=== PATIENT | female | born 1955 | race Caucasian/White ===

== ENCOUNTER 2020-06-07 20:25 | Inpatient (IN) | payer OTHER, SELFPAY ==
--- NOTE | ~2020-06-07 | XR_ITS ---
XR shoulder RT min 2V DATE: 06/11/2020 14:25 INDICATION: New onset of right shoulder pain TECHNIQUE: 4 views COMPARISON: None FINDINGS: There is diffuse osteopenia. There is severe narrowing at the right glenohumeral joint. There is chronic deformity including some inferior concavity of the articular margin of the right glenoid process. No apparent recent fracture. No dislocation. No abnormal soft tissue calcification. IMPRESSION: Chronic deformity of the glenoid process Osteoarthritis of the right glenohumeral joint Diffuse osteopenia Reviewed, dictated and finalized at location A. [facility]ERIN[facility]IAN
--- NOTE | ~2020-06-07 | CT_ITS ---
EXAMINATION: CT brain wo con EXAM DATE: 06/07/2020 21:38 INDICATION: Seizure . TECHNIQUE: Spiral CT of the head was performed without contrast. Axial, coronal and sagittal images were reviewed. The dose-length product (DLP) for this examination was 1362.00 mGy-cm. The exposure was tailored according to patient size, and iterative reconstruction (ASIR) was used as additional do se reduction technique. There is no prior study for comparison. FINDINGS: There is no acute intraparenchymal hemorrhage. No evidence of intraparenchymal brain mass lesion. No evidence of acute infarction. Please note that initial head CT has limited sensitivity f or small or acute infarctions. There is mild periventricular and subcortical hypodensity, nonspecific but probably related to small vessel ischemic disease. There is moderate prominence of the sulci a nd ventricles related to cerebral atrophy. There is intracranial carotid arteriosclerosis. There a re no extra-axial collections. There is no mass effect or midline shift. Patient has had bilateral ocular lens surgery. Soft tissue is unremarkable. The visualized sinuses and mastoid air cells are well aerated. IMPRESSION: 1. No acute intracranial findings. 2. Chronic age related findings. Reviewed, dictated and finalized at location A. T [employer] JOURNEYMAN
[2020-06-07 20:23] VITALS: BP 159/147; PULSE 136; RESP 28; TEMP 37.3; O2SAT 96
--- NOTE | 2020-06-07 20:33 | ECG_ITS ---
Measurements Intervals [place] Rate: 125 P: 14 RI: 145 QRS: 8 QRSD: 93 T: 34 QT: 336 QTc: 484 Interpretive Statements SINUS TACHYCARDIA VENTRICULAR PREMATURE COMPLEX NONSPECIFIC ST & T-WAVE ABNORMALITY- DIFFUSE LEADS ABNORMAL ECG Electronically Signed On 06-08-2020 11:10:10 MANAGER PRICING by Eliazar Martinez D.O.
--- NOTE | 2020-06-07 20:36 | ED.SEIZURE ---
HPI - Seizure General Chief Complaint: Seizure Stated Complaint: SEIZURES Time Seen by Provider: 06/07/20 20:33 History of Present Illness HPI Narrative: 65 yo female brought in by EMS for seizures. She reportedly had at least 2 seizures prior arrival here including one tonic-clonic seizure witnessed by EMS. She has no known seizure history. Last known normal was apparently 24 hours ago. She reports diffuse extremity weakness. No CP, SOB. On arrival here she was lucid for a brif period before having another seizure. history limited by mental status. Related Data Home Medications Medication Instructions Recorded Confirmed acetaminophen [Tylenol] 325 mg PO Q6-12H 06/07/20 06/07/20 albuterol mcg INHALATION 06/07/20 albuterol sulfate 0.63 mg INHALATION Q4H PRN 06/07/20 06/07/20 clonidine 06/07/20 clonidine HCl 0.3 mg PO DAILY 06/07/20 06/07/20 furosemide [Lasix] 20 mg PO DAILY 06/07/20 06/07/20 hydralazine-hydrochlorothiazid tablet PO 06/07/20 [Hydralazide] lactulose 20 g PO BID 06/07/20 06/07/20 lorazepam 1 mg PO TID PRN 06/07/20 06/07/20 montelukast [Singulair] 10 mg PO DAILY 06/07/20 06/07/20 pantoprazole 40 mg PO QAM 06/07/20 06/07/20 pioglitazone 30 mg PO DAILY 06/07/20 06/07/20 potassium chloride 20 meq PO BID 06/07/20 06/07/20 trazodone 100 mg PO HS PRN 06/07/20 06/07/20 warfarin 3 mg PO DAILY 06/07/20 06/07/20 Allergies Allergy/AdvReac Type Severity Reaction Status Date / Time amlodipine Allergy Rash Verified 06/07/20 20:37 atorvastatin [From Lipitor] Allergy Unknown Verified 06/07/20 20:41 diltiazem [From Cardizem] Allergy Rash Verified 06/07/20 20:41 doxycycline Allergy Rash Verified 06/07/20 20:41 fluoxetine Allergy Rash Verified 06/07/20 20:41 morphine Allergy Unknown Verified 06/07/20 20:41 nitroglycerin Allergy Unknown Verified 06/07/20 20:41 Penicillins Allergy Unknown Verified 06/07/20 20:41 promethazine Allergy Unknown Verified 06/07/20 20:41 propranolol [From Inderal LA] Allergy Unknown Verified 06/07/20 20:41 Sulfa (Sulfonamide Allergy Unknown Verified 06/07/20 20:41 Antibiotics) tetracycline Allergy Unknown Verified 06/07/20 20:41 Tetracyclines Allergy Unknown Verified 06/07/20 20:41 Review of Systems Review of Systems: ROS unobtainable: Yes unobtainable due to mental status [facility] Social History Social History (Updated 06/07/20 @ 20:40 by Cm Bradford MD) Living arrangements: [facility] Exam Const: General: alert and ill appearing Orientation/consciousness: confusion HENMT: Head: normal to inspection Eyes: Pupils: Equal, round and reactive pupils present Resp: Effort & Inspection: normal respiratory effort Auscultation: clear to auscultation bilaterally Cardio: Rate: tachycardic Rhythm: regular rhythm GI: GI Palp: Yes Soft to palpation and No Tenderness to palpation present (GI) Skin: General skin exam: normal color Neuro: General: CN's II-XI intact bilaterally Speech: normal speech Other: 3-4/5 strength in all extremities. exam limited by seizure Course Vital Signs Vital signs: Vital Signs Temperature 37.3 C 06/07/20 20:23 Pulse Rate 136 H 06/07/20 20:23 Respiratory Rate 28 H 06/07/20 20:23 Blood Pressure 159/147 H 06/07/20 20:23 Pulse Oximetry 96 06/07/20 20:23 Temperature 37.3 C 06/07/20 22:26 Pulse Rate 105 H 06/07/20 22:26 Respiratory Rate 28 H 06/07/20 22:26 Blood Pressure 148/92 H 06/07/20 22:26 Pulse Oximetry 96 06/07/20 22:26 MDM - Seizure Differential Diagnosis Differential diagnosis: Likely generalized seizure, new onset seizure and other (stroke, brain mass, UTI, ) Medical Records Attestation: I reviewed the patient's medical records. Lab Data Attestation: I reviewed the patient's lab results. Result diagrams: 06/07/20 21:26 06/07/20 22:07 Labs: Lab Results 06/07/20 06/07/20 06/07/20 Range/Units 21:24 21:26 21:26 WBC 15.4 H (4.5-10.0) K/mm3 RBC 4
[2020-06-07] MEDS: hydrALAZINE HCL 20 MG/ML VIAL IV PUSH (21:09)
[2020-06-07] MEDS: SODIUM CHLORIDE 0.9% IV 1,000 ML 999 ML IV CONT (21:09)
[2020-06-07 21:33] LABS: Basophils Absolute Auto 0.1 K/mm3 (0.0-0.1); Basophils Percent Auto 0.3 % (0.2-1.2); Eosinophils Percent Auto 0.1 % (0-4.4); Hematocrit 45.3 % (37.0-47.0); Hemoglobin 15.2 g/dL (12.0-15.0); Immature Granulocyte Absolute 0.23 K/mm3 (0.00-0.031); Immature Granulocyte Percent A 1.5 % (0-0.5); Lymphocytes Absolute Auto 0.86 K/mm3 (0.9-3.2); Lymphocytes Percent Auto 5.6 % (18.3-44.2); Mean Corpuscular HGB Conc 33.6 g/dl (32-36); Mean Corpuscular Hemoglobin 31.4 pg (26-34); Mean Corpuscular Volume 93.6 fl (80-100); Mean Platelet Volume 11.5 fl (7.4-10.4); Monocytes Absolute Auto 0.9 K/mm3 (0.1-0.6); Monocytes Percent Auto 5.9 % (2.6-8.5); Neutrophils Absolute Auto 13.3 K/mm3 (1.3-6.7); Neutrophils Percent Auto 86.6 % (45.5-73.1); Platelet Count Result 173 k/mm3 (150-375); Red Blood Count 4.84 M/mm3 (4.2-5.4); Red Cell Distribution Width 15.3 % (11.5-14.5); White Blood Count 15.4 K/mm3 (4.5-10.0)
[2020-06-07 21:39] LABS: Add Urine Microscopic? YES; Appearance Urine Clear (Clear); Bacteria Urine Trace /hpf; Bilirubin Urine Negative (Negative); Blood Urine Negative (Negative); Color Urine Yellow (Yellow); Glucose Urine UA Negative (Negative); Ketones Urine 2+ mg/dL (Negative); Leukocyte Esterase Ur Negative LEU/UL (Negative); Mucus Urine Rare /lpf; Nitrate Urine Negative (Negative); Protein Urine Negative (Negative); RBC Urine 0-2 /hpf (0-2); Specific Grav Ur 1.012 (1.001-1.035); Squamous Epithelial Cell Urine Occasional /hpf (Few); Urobilinogen Urine Negative mg/dL (<2.0); WBC Urine 0-3 /hpf
[2020-06-07 22:22] LABS: INR 1.4; Prothrombin Time 17.5 Seconds (11.1-14.7)
[2020-06-07 22:23] LABS: Partial Thromboplastin Time 27.2 SECONDS (22.3-36.8)
[2020-06-07 22:26] VITALS: BP 148/92; PULSE 105; RESP 28; TEMP 37.3; O2SAT 96
[2020-06-07 22:26] LABS: Ammonia < 9 umol/L (9-30)
[2020-06-07 22:32] LABS: Alanine Aminotransferase 26 U/L (4-35); Albumin Level 3.7 g/dL (3.5-5.1); Alkaline Phosphatase 70 U/L (38-126); Anion Gap 13 mmol/L (8-16); Aspartate Amino Transferase 39 U/L (14-36); Bilirubin,Total 1.7 mg/dL (0.2-1.3); Blood Urea Nitrogen 12 mg/dL (7-17); Calcium 8.7 mg/dL (8.4-10.2); Carbon Dioxide 32 mmol/L (22-30); Chloride 93 mmol/L (98-107); Estimated CRCL calculation 98 ml/min; Estimated Glomerular Filt Rate > 60; Glucose 109 mg/dL (65-105); Potassium 3.5 mmol/L (3.4-5.0); Sodium 138 mmol/L (137-145)
[2020-06-07] MEDS: levETIRAcetam 1000MG/NACL100ML 1,000 MG/100 ML BAG 400 MG IVPB (22:38)
--- NOTE | 2020-06-07 22:50 | PM.IMHP ---
H&P: HPI History of Present Illness Date/Time: 06/07/20 22:50 Chief Complaint: Grand mal seizure tonic-clonic Narrative: Latosha Purcell is a 65 year old [facility] from [facility] with past medical history morbid obesity, anxiety/depression, SLE, type 2 diabetes, hypertension, insomnia, chronic pain, COPD presents the ED with seizures. Apparently she had 3 seizure [facility]onic [facility] jail and then witnessed by EMS and then witnessed in the ED. The 1st seizures ended spontaneously, in the ED they give Ativan 2 mg. Patient is postictal not able to provide any history. senior living documented very limited information. Patient is not able to participate in questioning. She has an extensive allergy list. It appears patient does not have any new medications. Patient has no history of seizures documented. No history of substance abuse. Apparently her last known well was 24 hours ago. From chart review patient appears not to have any seizure medications, lorazepam as for anxiety. In the ED: Patient witnessed seizure in given 2 mg Ativan IV. EKG shows sinus tachycardia rate [address] head was negative. Lactic acid was elevated at 5. Patient no sign of infection, ammonia was negative, UA negative. WBC elevated at 15,000. Review of Systems Review of Systems: Narrative: Postictal not very responsive ROS unobtainable: Yes unobtainable due to mental status PMFSH Past Medical History Medical History Anxiety COPD (chronic obstructive pulmonary disease) Depression DVT (deep venous thrombosis) Essential hypertension Insomnia SLE (systemic lupus erythematosus) Type 2 diabetes mellitus Social History Social History Smoking status: Never smoker Alcohol intake: never Substance use: never Substance use type: does not use Living arrangements: jail Additional living arrangements comments: [facility] Occupation/Education: other Additional occupation/education comments: disabled Gender identity (if verbalized by the patient): Female Spiritual care concerns: No Meds Home Medications and Allergies Home Medications Medication Instructions Recorded Confirmed Type acetaminophen [Tylenol] 650 mg PO Q6H PRN 06/07/20 06/08/20 History albuterol See Rx Instructions .ROUTE 06/07/20 06/08/20 History .COMPLEX PRN albuterol sulfate 0.63 mg INHALATION Q4H PRN 06/07/20 06/07/20 History clonidine HCl 0.3 mg PO TID 06/07/20 06/08/20 History furosemide [Lasix] 20 mg PO DAILY 06/07/20 06/07/20 History lactulose 30 ml PO BID 06/07/20 06/08/20 History lorazepam 1 mg PO TID PRN 06/07/20 06/07/20 History montelukast [Singulair] 10 mg PO HS 06/07/20 06/08/20 History pantoprazole 40 mg PO QAM 06/07/20 06/07/20 History pioglitazone 30 mg PO DAILY 06/07/20 06/07/20 History potassium chloride 20 meq PO BID 06/07/20 06/07/20 History trazodone 100 mg PO HS PRN 06/07/20 06/07/20 History warfarin 3 mg PO DAILY 06/07/20 06/07/20 History fluticasone propionate 1 spray INTRANASAL BID 06/08/20 06/08/20 History hydralazine 25 mg PO TID 06/08/20 06/08/20 History levofloxacin 750 mg PO DAILY 06/08/20 06/08/20 History polyethylene glycol 3350 [Miralax] 17 g PO BID PRN 06/08/20 06/08/20 History Allergies Allergy/AdvReac Type Severity Reaction Status Date / Time amlodipine Allergy Rash Verified 06/08/20 00:47 atorvastatin [From Lipitor] Allergy Unknown Verified 06/08/20 00:47 diltiazem [From Cardizem] Allergy Rash Verified 06/08/20 00:47 doxycycline Allergy Rash Verified 06/08/20 00:47 fluoxetine Allergy Rash Verified 06/08/20 00:47 morphine Allergy Unknown Verified 06/08/20 00:47 nitroglycerin Allergy Unknown Verified 06/08/20 00:47 Penicillins Allergy Unknown Verified 06/08/20 00:47 promethazine Allergy Unknown Verified 06/08/20 00:47 propranolol [From Inderal LA] Allergy Unknown Verified
--- NOTE | 2020-06-07 23:50 | ADMGEN ---
This patient, Latosha Purcell, was admitted to Medical Room 345-01. Patient/family oriented to hospital policies and general routines including ID bracelet, bed and alarms, visiting hours, pain management, procedures, bathroom and other care routines, personal items, smoking policy, room service/diet, and visiting hours. Information on how to activate the Rapid Response Team has been discussed. Patient/Family are encouraged to report perceived risks to care and to ask questions if they do not understand what they are told or what they should do.
[2020-06-08] VITALS (14 sets, daily range): BP systolic 121–148; BP diastolic 58–83; PULSE 86–115; RESP 14–22; TEMP 36.1–37.4; O2SAT 94–98; BMI 47.2
[2020-06-08 00:20] LABS: Glucose Point of Care 112 (65-105)
[2020-06-08 00:30] LABS: Reflex Lactic Acid Yes or No Add Lactic
[2020-06-08] MEDS: LACTATED RINGERS 1,000 ML 75 ML IV CONT ×2 (01:18→16:14)
[2020-06-08 01:29] LABS: Lactic Acid 1.3 mmol/L (0.7-2.1)
[2020-06-08 07:44] LABS: Glucose Point of Care 111 (65-105)
[2020-06-08 08:38] LABS: Magnesium 2.1 mg/dL (1.6-2.3)
[2020-06-08] MEDS: levETIRAcetam 500MG/NACL 100ML 500 MG/100 ML BAG 250 MG IVPB ×2 (10:30→21:17)
[2020-06-08] MEDS: FLUTICASONE PROPIONATE 0.05% NA SPR 16 GM BTL (*BKC) 1 SPRAY NASAL ×2 (10:56→21:18)
[2020-06-08] MEDS: LACTULOSE 20 GM/30 ML UDC PO ×2 (10:58→16:22)
[2020-06-08] MEDS: PANTOPRAZOLE 40 MG TABLET PO (10:59)
[2020-06-08] MEDS: PIOGLITAZONE HCL 30 MG TABLET PO (10:59)
[2020-06-08] MEDS: POTASSIUM CHLORIDE 20 MEQ TABLET.ER PO ×2 (10:59→16:22)
[2020-06-08] MEDS: FUROSEMIDE 20 MG TABLET PO (10:59)
[2020-06-08 11:59] LABS: Glucose Point of Care 111 (65-105)
[2020-06-08] MEDS: hydrALAZINE HCL 25 MG TABLET PO ×2 (12:10→16:22)
--- NOTE | 2020-06-08 13:44 | PM.IMPN ---
Progress Note: A&P Assessment and Plan (1) New onset seizure: Code(s): R56.9 - Unspecified convulsions Status: Acute Assessment and Plan: -unclear etiology, likely true grand mal seizure with elevated lactic acid, witnessed by multiple providers, dry vomit on her lips. -no history of alcohol abuse -no history of seizures, reviewed medication list, nothing that lowers seizure threshold -no med new medication changes -electrolytes stable 138, glucose, 109, ammonia negative, checking magnesium, calcium normal, no alcohol abuse or drug abuse or intoxication living in alf, checking TSH, no brain injury seen on CT scan, no reported episodes of hypoxia leading seizure, no clinical signs of meningitis or encephalitis -loaded with Keppra in the ED -consulting Neurology and ordering EEG -will watch with seizure precautions and telemetry -continue LR 75 cc/hour while NPO 06/08/20 13:44 Patient is 65-year-old morbidly obese female a resident of alf with a history of diabetes, hypertension, anxiety depression, insomnia, COPD patient had 3 witnessed seizure at the alf, EMS was called and EMS also saw patient was having seizures as well as while in the emergency depart patient also had a seizures, patient was given 2 mg IV Ativan which aborted patient seizure and patient was started on Keppra, will continue Keppra 500 mg b.i.d. IV, and will switch over to oral medication before discharging patient back to alf, currently patient more alert and oriented denies any history of seizure in the past nor there is any history of alcohol or drug abuse, patient remains clinically stable while in the hospital, patient will be seen by neurologist and further recommendation to follow, will continue to monitor the patient will have a PT OT evaluate the patient and further recommendation to follow (2) Tachycardia: Code(s): R00.0 - Tachycardia, unspecified Status: Acute Assessment and Plan: -likely secondary to seizure activity (3) COPD (chronic obstructive pulmonary disease): Code(s): J44.9 - Chronic obstructive pulmonary disease, unspecified Status: Inactive Assessment and Plan: Patient remains clinically stable will continue updraft (4) Depression: Code(s): F32.9 - Major depressive disorder, single episode, unspecified Status: Inactive Assessment and Plan: Will continue home regimen (5) Type 2 diabetes mellitus: Code(s): E11.9 - Type 2 diabetes mellitus without complications Status: Inactive Assessment and Plan: Will continue home regimen and monitor Additional Plan # other medical conditions-holding home meds while postictal -type 2 diabetes-on Actos -hypertension: Clonidine, Lasix 20 mg daily 0.3 tab t.i.d., hydralazine -insomnia-on trazodone -history of DVTs on warfarin, however INR is only 1.4, 1 she can take p.o. will have to restart warfarin -COPD: P.r.n. albuterol, home singular -allergies: Fluticasone -anxiety/depression: Ativan p.r.n. -constipation: lactulose, MiraLax -GERD: Protonix Diet: NPO while postictal, will re-evaluate in a.m. DVT prophylaxis: SCDs Code status: Full code Disposition: Observation for seizures Subjective Date/time seen: 06/08/20 13:44 Patient is 65-year-old morbidly obese female a resident of alf with a history of diabetes, hypertension, anxiety depression, insomnia, COPD patient had 3 witnessed seizure at the alf, EMS was called and EMS also saw patient was having seizures as well as while in the emergency depart patient also had a seizures, patient was given 2 mg IV Ativan which aborted patient seizure and patient was started on Keppra, will continue Keppra 500 mg b.i.d. IV, and will switch over to oral medication before discharging patient back to alf, currently patient more alert and oriented denies any history of seizure in the past nor there is any history of alcohol o
[2020-06-08] MEDS: cloNIDine HCL 0.1 MG TABLET 0.3 MG PO ×2 (14:09→21:19)
[2020-06-08] MEDS: ENOXAPARIN 80 MG/0.8 ML SYRINGE SUB-Q (16:19)
[2020-06-08] MEDS: ENOXAPARIN 60 MG/0.6 ML SYRINGE 49 MG SUB-Q (16:19)
[2020-06-08] MEDS: WARFARIN (*PBKC) 3 MG TABLET PO (16:22)
[2020-06-08 16:51] LABS: Glucose Point of Care 107 (65-105)
[2020-06-08] MEDS: MONTELUKAST SODIUM 10 MG TABLET PO (21:18)
[2020-06-08 21:32] LABS: Glucose Point of Care 130 (65-105)
[2020-06-09] VITALS (14 sets, daily range): BP systolic 118–135; BP diastolic 50–63; PULSE 59–94; RESP 16–18; TEMP 36.1–36.4; O2SAT 94–100; BMI 10.0
[2020-06-09] MEDS: ENOXAPARIN 80 MG/0.8 ML SYRINGE SUB-Q ×2 (04:58→16:01)
[2020-06-09] MEDS: ENOXAPARIN 60 MG/0.6 ML SYRINGE 49 MG SUB-Q ×2 (04:58→16:01)
[2020-06-09] MEDS: cloNIDine HCL 0.1 MG TABLET 0.3 MG PO ×3 (05:01→21:02)
[2020-06-09] MEDS: LACTATED RINGERS 1,000 ML 75 ML IV CONT ×2 (06:03→20:02)
[2020-06-09 06:13] LABS: Alanine Aminotransferase 20 U/L (4-35); Albumin Level 2.8 g/dL (3.5-5.1); Alkaline Phosphatase 61 U/L (38-126); Anion Gap 6 mmol/L (8-16); Aspartate Amino Transferase 28 U/L (14-36); Bilirubin,Total 1.2 mg/dL (0.2-1.3); Blood Urea Nitrogen 9 mg/dL (7-17); Calcium 7.7 mg/dL (8.4-10.2); Carbon Dioxide 35 mmol/L (22-30); Chloride 96 mmol/L (98-107); Estimated CRCL calculation 108 ml/min; Estimated Glomerular Filt Rate > 60; Glucose 117 mg/dL (65-105); Potassium 3.1 mmol/L (3.4-5.0); Sodium 137 mmol/L (137-145)
[2020-06-09 06:20] LABS: INR 1.7; Prothrombin Time 20.3 Seconds (11.1-14.7)
[2020-06-09 08:25] LABS: Glucose Point of Care 116 (65-105)
[2020-06-09] MEDS: levETIRAcetam 500MG/NACL 100ML 500 MG/100 ML BAG 400 MG IVPB (08:25)
[2020-06-09] MEDS: FLUTICASONE PROPIONATE 0.05% NA SPR 16 GM BTL (*BKC) 1 SPRAY NASAL ×2 (08:30→20:41)
[2020-06-09] MEDS: LACTULOSE 20 GM/30 ML UDC PO ×2 (08:31→16:07)
[2020-06-09] MEDS: PANTOPRAZOLE 40 MG TABLET PO (08:31)
[2020-06-09] MEDS: FUROSEMIDE 20 MG TABLET PO (08:31)
[2020-06-09] MEDS: hydrALAZINE HCL 25 MG TABLET PO ×3 (08:31→17:26)
[2020-06-09] MEDS: POTASSIUM CHLORIDE 20 MEQ TABLET.ER PO ×2 (08:31→16:07)
[2020-06-09] MEDS: PIOGLITAZONE HCL 30 MG TABLET PO (08:32)
[2020-06-09] MEDS: POTASSIUM CHLORIDE 20 MEQ TABLET 40 MEQ PO (11:17)
--- NOTE | 2020-06-09 12:20 | WPDNEURCNPN ---
Assessment and Plan Assessment and plan (1) New onset seizure: Code(s): R56.9 - Unspecified convulsions Status: Acute Additional Plan Considering the symptomatology benefit from the EEG the CT scan has been negative we might obtain the MRI of the brain if necessary Consult date: 06/09/20 Time Seen: 12:15 HPI: Latosha Purcell is a 65 year old female has been admitted to [facility] with the complaints of grand mal seizures in addition to the ongoing history of 1. Morbid obesity 2. Anxiety with depression 3. SLE 4. Diabetes mellitus type 2 5. Hypertension 6. Insomnia 7. Chronic pain 8. COPD . Reportedly [facility] witnessed by EMS in the emergency room as well in the ER she received Ativan 2 mg daily she was not able to give any further information her last known well was 24 hours ago. She did receive Ativan intravenously 2 mg with EKG documenting tachycardia, the scan negative, lactic acid of 5, and leukocytosis With electrolytes showing serum potassium 3.1. calcium low and albumin low also stars 0 2 RNA pending Review of Systems Review of Systems: All systems reviewed & are unremarkable except as noted in HPI and below PMFSH Past Medical History Medical History (Updated 06/08/20 @ 13:54 by Demarcus Ndiaye MD) Anxiety COPD (chronic obstructive pulmonary disease) Depression DVT (deep venous thrombosis) Essential hypertension Insomnia SLE (systemic lupus erythematosus) Type 2 diabetes mellitus Social History Social History Smoking status: Never smoker Alcohol intake: never Substance use: never Substance use type: does not use Living arrangements: [facility] Additional living arrangements comments: [facility] Occupation/Education: other Additional occupation/education comments: disabled Gender identity (if verbalized by the patient): Female Spiritual care concerns: No Meds Home Medications and Allergies Home Medications Medication Instructions Recorded Confirmed Type acetaminophen [Tylenol] 650 mg PO Q6H PRN 06/07/20 06/08/20 History albuterol See Rx Instructions .ROUTE 06/07/20 06/08/20 History .COMPLEX PRN albuterol sulfate 0.63 mg INHALATION Q4H PRN 06/07/20 06/07/20 History clonidine HCl 0.3 mg PO TID 06/07/20 06/08/20 History furosemide [Lasix] 20 mg PO DAILY 06/07/20 06/07/20 History lactulose 30 ml PO BID 06/07/20 06/08/20 History lorazepam 1 mg PO TID PRN 06/07/20 06/07/20 History montelukast [Singulair] 10 mg PO HS 06/07/20 06/08/20 History pantoprazole 40 mg PO QAM 06/07/20 06/07/20 History pioglitazone 30 mg PO DAILY 06/07/20 06/07/20 History potassium chloride 20 meq PO BID 06/07/20 06/07/20 History trazodone 100 mg PO HS PRN 06/07/20 06/07/20 History warfarin 3 mg PO DAILY 06/07/20 06/07/20 History fluticasone propionate 1 spray INTRANASAL BID 06/08/20 06/08/20 History hydralazine 25 mg PO TID 06/08/20 06/08/20 History levofloxacin 750 mg PO DAILY 06/08/20 06/08/20 History polyethylene glycol 3350 [Miralax] 17 g PO BID PRN 06/08/20 06/08/20 History Allergies Allergy/AdvReac Type Severity Reaction Status Date / Time amlodipine Allergy Rash Verified 06/08/20 00:47 atorvastatin [From Lipitor] Allergy Unknown Verified 06/08/20 00:47 diltiazem [From Cardizem] Allergy Rash Verified 06/08/20 00:47 doxycycline Allergy Rash Verified 06/08/20 00:47 fluoxetine Allergy Rash Verified 06/08/20 00:47 morphine Allergy Unknown Verified 06/08/20 00:47 nitroglycerin Allergy Unknown Verified 06/08/20 00:47 Penicillins Allergy Unknown Verified 06/08/20 00:47 promethazine Allergy Unknown Verified 06/08/20 00:47 propranolol [From Inderal LA] Allergy Unknown Verified 06/08/20 00:47 Sulfa (Sulfonamide Allergy Unknown Verified 06/08/20 00:47 Antibiotics) tetracycline Allergy Unknown Verified 06/08/20 00:47 Tetracyclines Allergy Unknown Verified 06/08/20 00:47 Vital Signs
[2020-06-09 12:41] LABS: Glucose Point of Care 120 (65-105)
--- NOTE | 2020-06-09 13:27 | PM.IMPN ---
Progress Note: A&P Assessment and Plan (1) New onset seizure: Code(s): R56.9 - Unspecified convulsions Status: Acute Assessment and Plan: -unclear etiology, likely true grand mal seizure with elevated lactic acid, witnessed by multiple providers, dry vomit on her lips. -no history of alcohol abuse -no history of seizures, reviewed medication list, nothing that lowers seizure threshold -no med new medication changes -electrolytes stable 138, glucose, 109, ammonia negative, checking magnesium, calcium normal, no alcohol abuse or drug abuse or intoxication living in [facility], checking TSH, no brain injury seen on CT scan, no reported episodes of hypoxia leading seizure, no clinical signs of meningitis or encephalitis -loaded with Keppra in the ED -consulting Neurology and ordering EEG -will watch with seizure precautions and telemetry -continue LR 75 cc/hour while NPO 06/09/20 13:27 Patient is 65-year-old morbidly obese female a resident of [facility] with a history of diabetes, hypertension, anxiety depression, insomnia, COPD patient had 3 witnessed seizure at the [facility], EMS was called and EMS also saw patient was having seizures as well as while in the emergency depart patient also had a seizures, patient was given 2 mg IV Ativan which aborted patient seizure and patient was started on Keppra, continued Keppra 500 mg b.i.d. IV, and will switch over to oral medication before discharging patient back to [facility], currently patient more alert and oriented denies any history of seizure in the past nor there is any history of alcohol or drug abuse, patient remains clinically stable while in the hospital, patient will be seen by neurologist and further recommendation to follow, will continue to monitor the patient will have a PT OT evaluate the patient and further recommendation to follow, patient has not had any seizure since hospitalized, will switch her over to oral Keppra, patient is seen by neurologist recommending EEG and possibly MRI to further evaluate will follow and further recommendation to follow (2) Tachycardia: Code(s): R00.0 - Tachycardia, unspecified Status: Acute Assessment and Plan: -likely secondary to seizure activity (3) COPD (chronic obstructive pulmonary disease): Code(s): J44.9 - Chronic obstructive pulmonary disease, unspecified Status: Inactive Assessment and Plan: Patient remains clinically stable will continue updraft (4) Depression: Code(s): F32.9 - Major depressive disorder, single episode, unspecified Status: Inactive Assessment and Plan: Will continue home regimen (5) Type 2 diabetes mellitus: Code(s): E11.9 - Type 2 diabetes mellitus without complications Status: Inactive Assessment and Plan: Will continue home regimen and monitor Subjective Date/time seen: 06/09/20 13:27 Patient is 65-year-old morbidly obese female a [facility] with a history of diabetes, hypertension, anxiety depression, insomnia, COPD patient had 3 witnessed seizure at the [facility], EMS was called and EMS also saw patient was having seizures as well as while in the emergency depart patient also had a seizures, patient was given 2 mg IV Ativan which aborted patient seizure and patient was started on Keppra, continued Keppra 500 mg b.i.d. IV, and will switch over to oral medication before discharging patient back to [facility], currently patient more alert and oriented denies any history of seizure in the past nor there is any history of alcohol or drug abuse, patient remains clinically stable while in the hospital, patient will be seen by neurologist and further recommendation to follow, will continue to monitor the patient will have a PT OT evaluate the patient and further recommendation to follow, patient has not had any seizure since hospitalized, will switch her over to oral Keppra, patient is seen by neurologist domonique
[2020-06-09 15:49] LABS: Glucose Point of Care 117 (65-105)
[2020-06-09] MEDS: WARFARIN (*PBKC) 3 MG TABLET PO (16:07)
[2020-06-09 19:30] LABS: SARS-CoV-2 RNA PCR Negative
[2020-06-09] MEDS: POTASSIUM CHLORIDE 20 MEQ PACKET (FOR LIQUID) PO (20:40)
[2020-06-09] MEDS: levETIRAcetam 500 MG TABLET PO (20:41)
[2020-06-09] MEDS: MONTELUKAST SODIUM 10 MG TABLET PO (20:42)
[2020-06-09 21:08] LABS: Glucose Point of Care 105 (65-105)
[2020-06-10] VITALS (13 sets, daily range): BP systolic 106–137; BP diastolic 48–66; PULSE 60–104; RESP 18–20; TEMP 35.9–36.4; O2SAT 92–98
[2020-06-10] MEDS: ENOXAPARIN 60 MG/0.6 ML SYRINGE 49 MG SUB-Q ×2 (04:59→15:59)
[2020-06-10] MEDS: ENOXAPARIN 80 MG/0.8 ML SYRINGE SUB-Q ×2 (04:59→15:57)
[2020-06-10] MEDS: cloNIDine HCL 0.1 MG TABLET 0.3 MG PO ×3 (05:35→21:02)
[2020-06-10 07:54] LABS: Glucose Point of Care 112 (65-105)
[2020-06-10 07:59] LABS: INR 1.7; Prothrombin Time 20.4 Seconds (11.1-14.7)
[2020-06-10 08:11] LABS: Alanine Aminotransferase 19 U/L (4-35); Albumin Level 2.6 g/dL (3.5-5.1); Alkaline Phosphatase 51 U/L (38-126); Anion Gap 3 mmol/L (8-16); Aspartate Amino Transferase 28 U/L (14-36); Bilirubin,Total 1.1 mg/dL (0.2-1.3); Blood Urea Nitrogen 8 mg/dL (7-17); Calcium 7.6 mg/dL (8.4-10.2); Carbon Dioxide 35 mmol/L (22-30); Chloride 97 mmol/L (98-107); Estimated CRCL calculation 127 ml/min; Estimated Glomerular Filt Rate > 60; Glucose 108 mg/dL (65-105); Sodium 135 mmol/L (137-145)
[2020-06-10] MEDS: LACTATED RINGERS 1,000 ML 75 ML IV CONT ×2 (10:30→23:18)
[2020-06-10] MEDS: FLUTICASONE PROPIONATE 0.05% NA SPR 16 GM BTL (*BKC) 1 SPRAY NASAL ×2 (11:07→20:01)
[2020-06-10] MEDS: LACTULOSE 20 GM/30 ML UDC PO ×2 (11:07→16:03)
[2020-06-10] MEDS: POTASSIUM CHLORIDE 20 MEQ TABLET.ER PO ×2 (11:07→17:40)
[2020-06-10] MEDS: PIOGLITAZONE HCL 30 MG TABLET PO (11:08)
[2020-06-10] MEDS: levETIRAcetam 500 MG TABLET PO ×2 (11:08→20:01)
[2020-06-10] MEDS: PANTOPRAZOLE 40 MG TABLET PO (11:09)
[2020-06-10] MEDS: FUROSEMIDE 20 MG TABLET PO (11:09)
[2020-06-10] MEDS: hydrALAZINE HCL 25 MG TABLET PO ×3 (11:23→18:45)
[2020-06-10 12:52] LABS: Glucose Point of Care 123 (65-105)
--- NOTE | 2020-06-10 15:09 | PM.IMPN ---
Progress Note: A&P Assessment and Plan (1) New onset seizure: Code(s): R56.9 - Unspecified convulsions Status: Acute Assessment and Plan: -unclear etiology, likely true grand mal seizure with elevated lactic acid, witnessed by multiple providers, dry vomit on her lips. -no history of alcohol abuse -no history of seizures, reviewed medication list, nothing that lowers seizure threshold -no med new medication changes -electrolytes stable 138, glucose, 109, ammonia negative, checking magnesium, calcium normal, no alcohol abuse or drug abuse or intoxication living in detention, checking TSH, no brain injury seen on CT scan, no reported episodes of hypoxia leading seizure, no clinical signs of meningitis or encephalitis -loaded with Keppra in the ED -consulting Neurology and ordering EEG -will watch with seizure precautions and telemetry -continue LR 75 cc/hour while NPO 06/10/20 15:09 Patient is 65-year-old morbidly obese female a resident of detention with a history of diabetes, hypertension, anxiety depression, insomnia, COPD patient had 3 witnessed seizure at the detention, EMS was called and EMS also saw patient was having seizures as well as while in the emergency depart patient also had a seizures, patient was given 2 mg IV Ativan which aborted patient seizure and patient was started on Keppra, continued Keppra 500 mg b.i.d. IV, and will switch over to oral medication before discharging patient back to detention, currently patient more alert and oriented denies any history of seizure in the past nor there is any history of alcohol or drug abuse, patient remains clinically stable while in the hospital, patient was seen by neurologist recommended EEG which will be done tomorrow 06/11, patient was switced over to oral keppar 500mg BID on 06/10/2020 tolerating well and no seizures, continue present management, will follow-up on EEG and further recommendation to follow (2) Tachycardia: Code(s): R00.0 - Tachycardia, unspecified Status: Acute Assessment and Plan: -likely secondary to seizure activity (3) COPD (chronic obstructive pulmonary disease): Code(s): J44.9 - Chronic obstructive pulmonary disease, unspecified Status: Inactive Assessment and Plan: Patient remains clinically stable will continue updraft (4) Depression: Code(s): F32.9 - Major depressive disorder, single episode, unspecified Status: Inactive Assessment and Plan: Will continue home regimen (5) Type 2 diabetes mellitus: Code(s): E11.9 - Type 2 diabetes mellitus without complications Status: Inactive Assessment and Plan: Will continue home regimen and monitor Subjective Date/time seen: 06/10/20 15:09 Patient is 65-year-old morbidly obese female a resident of detention with a history of diabetes, hypertension, anxiety depression, insomnia, COPD patient had 3 witnessed seizure at the detention, EMS was called and EMS also saw patient was having seizures as well as while in the emergency depart patient also had a seizures, patient was given 2 mg IV Ativan which aborted patient seizure and patient was started on Keppra, continued Keppra 500 mg b.i.d. IV, and will switch over to oral medication before discharging patient back to detention, currently patient more alert and oriented denies any history of seizure in the past nor there is any history of alcohol or drug abuse, patient remains clinically stable while in the hospital, patient was seen by neurologist recommended EEG which will be done tomorrow 06/11, patient was switced over to oral keppar 500mg BID on 06/10/2020 tolerating well and no seizures, continue present management, will follow-up on EEG and further recommendation to follow Review of Systems Review of Systems: All systems reviewed & are unremarkable except as noted in HPI and below Exam Narrative: Exam Narrative: Morbidly obese Patient is comfortable
[2020-06-10] MEDS: TOLNAFTATE 1% POWDER 45 GM BTL 1 APPLIC TOPICAL ×2 (15:55→20:01)
[2020-06-10] MEDS: WARFARIN (*PBKC) 3 MG TABLET PO (16:03)
[2020-06-10 16:48] LABS: Glucose Point of Care 135 (65-105)
[2020-06-10] MEDS: MONTELUKAST SODIUM 10 MG TABLET PO (20:01)
[2020-06-10 21:09] LABS: Glucose Point of Care 109 (65-105)
[2020-06-11] VITALS (7 sets, daily range): BP systolic 118–137; BP diastolic 54–71; PULSE 70–100; RESP 16–18; TEMP 36.6–36.8; O2SAT 97
[2020-06-11] MEDS: LORazepam (*CRX) 1 MG TABLET PO ×2 (00:16→10:26)
[2020-06-11] MEDS: ENOXAPARIN 80 MG/0.8 ML SYRINGE SUB-Q ×2 (04:46→17:07)
[2020-06-11] MEDS: ENOXAPARIN 60 MG/0.6 ML SYRINGE 49 MG SUB-Q ×2 (04:52→17:06)
[2020-06-11] MEDS: cloNIDine HCL 0.1 MG TABLET 0.3 MG PO ×2 (05:00→13:28)
[2020-06-11 06:23] LABS: INR 1.9; Prothrombin Time 22.1 Seconds (11.1-14.7)
[2020-06-11 06:27] LABS: Alanine Aminotransferase 19 U/L (4-35); Albumin Level 2.6 g/dL (3.5-5.1); Alkaline Phosphatase 61 U/L (38-126); Anion Gap 4 mmol/L (8-16); Aspartate Amino Transferase 25 U/L (14-36); Bilirubin,Total 1.1 mg/dL (0.2-1.3); Blood Urea Nitrogen 6 mg/dL (7-17); Carbon Dioxide 36 mmol/L (22-30); Chloride 96 mmol/L (98-107); Estimated CRCL calculation 127 ml/min; Estimated Glomerular Filt Rate > 60; Glucose 118 mg/dL (65-105); Potassium 3.5 mmol/L (3.4-5.0); Sodium 136 mmol/L (137-145)
[2020-06-11 07:38] LABS: Glucose Point of Care 134 (65-105)
[2020-06-11] MEDS: LACTULOSE 20 GM/30 ML UDC PO ×2 (08:12→17:08)
[2020-06-11] MEDS: FUROSEMIDE 20 MG TABLET PO (08:13)
[2020-06-11] MEDS: FLUTICASONE PROPIONATE 0.05% NA SPR 16 GM BTL (*BKC) 1 SPRAY NASAL (08:13)
[2020-06-11] MEDS: levETIRAcetam 500 MG TABLET PO (08:13)
[2020-06-11] MEDS: hydrALAZINE HCL 25 MG TABLET PO ×3 (08:13→17:08)
[2020-06-11] MEDS: TOLNAFTATE 1% POWDER 45 GM BTL 1 APPLIC TOPICAL (08:14)
[2020-06-11] MEDS: PANTOPRAZOLE 40 MG TABLET PO (08:14)
[2020-06-11] MEDS: PIOGLITAZONE HCL 30 MG TABLET PO (08:14)
[2020-06-11] MEDS: ACETAMINOPHEN 325 MG TABLET 650 MG PO (10:25)
[2020-06-11 11:31] LABS: Glucose Point of Care 117 (65-105)
[2020-06-11] MEDS: LACTATED RINGERS 1,000 ML 75 ML IV CONT (13:26)
--- NOTE | 2020-06-11 15:09 | PM.DS ---
DS: Admitting Diagnosis Admitting Diagnosis Admitting Diagnosis: Grand mal seizure tonic-clonic DS: Discharge Diagnosis Discharge Diagnosis (1) New onset seizure: Code(s): R56.9 - Unspecified convulsions Status: Acute Assessment and Plan: -unclear etiology, likely true grand mal seizure with elevated lactic acid, witnessed by multiple providers, dry vomit on her lips. -no history of alcohol abuse -no history of seizures, reviewed medication list, nothing that lowers seizure threshold -no med new medication changes -electrolytes stable 138, glucose, 109, ammonia negative, checking magnesium, calcium normal, no alcohol abuse or drug abuse or intoxication living in [facility], checking TSH, no brain injury seen on CT scan, no reported episodes of hypoxia leading seizure, no clinical signs of meningitis or encephalitis -loaded with Keppra in the ED -consulting Neurology and ordering EEG -will watch with seizure precautions and telemetry -continue LR 75 cc/hour while NPO 06/10/20 15:09 Patient is 65-year-old morbidly obese female a resident of [facility] with a history of diabetes, hypertension, anxiety depression, insomnia, COPD patient had 3 witnessed seizure at the [facility], EMS was called and EMS also saw patient was having seizures as well as while in the emergency depart patient also had a seizures, patient was given 2 mg IV Ativan which aborted patient seizure and patient was started on Keppra, continued Keppra 500 mg b.i.d. IV, and will switch over to oral medication before discharging patient back to [facility], currently patient more alert and oriented denies any history of seizure in the past nor there is any history of alcohol or drug abuse, patient remains clinically stable while in the hospital, patient was seen by neurologist recommended EEG which will be done tomorrow 06/11, patient was switced over to oral keppar 500mg BID on 06/10/2020 tolerating well and no seizures, continue present management, will follow-up on EEG and further recommendation to follow (2) Tachycardia: Code(s): R00.0 - Tachycardia, unspecified Status: Acute Assessment and Plan: -likely secondary to seizure activity (3) COPD (chronic obstructive pulmonary disease): Code(s): J44.9 - Chronic obstructive pulmonary disease, unspecified Status: Inactive Assessment and Plan: Patient remains clinically stable will continue updraft (4) Depression: Code(s): F32.9 - Major depressive disorder, single episode, unspecified Status: Inactive Assessment and Plan: Will continue home regimen (5) Type 2 diabetes mellitus: Code(s): E11.9 - Type 2 diabetes mellitus without complications Status: Inactive Assessment and Plan: Will continue home regimen and monitor DS: Summary Hospital Course Reason for hospitalization: Chief Complaint: Grand mal seizure tonic-clonic Narrative: Latosha Purcell is a 65 year old female from [facility] with past medical history morbid obesity, anxiety/depression, SLE, type 2 diabetes, hypertension, insomnia, chronic pain, COPD presents the ED with seizures. Apparently she had 3 seizure tonic-clonic at [facility] and then witnessed by EMS and then witnessed in the ED. The 1st seizures ended spontaneously, in the ED they give Ativan 2 mg. Patient is postictal not able to provide any history. [facility] documented very limited information. Patient is not able to participate in questioning. She has an extensive allergy list. It appears patient does not have any new medications. Patient has no history of seizures documented. No history of substance abuse. Apparently her last known well was 24 hours ago. From chart review patient appears not to have any seizure medications, lorazepam as for anxiety. In the ED: Patient witnessed seizure in given 2 mg Ativan IV. EKG shows sinus tachycardia rate [address] head was negative. Lactic ac
[2020-06-11 16:45] LABS: Glucose Point of Care 112 (65-105)
[2020-06-11] MEDS: WARFARIN (*PBKC) 3 MG TABLET PO (17:08)
[2020-06-11] MEDS: POTASSIUM CHLORIDE 20 MEQ TABLET.ER PO (17:08)
--- NOTE | 2020-06-13 09:27 | WPDNEUROLOGY ---
Neurology EEG Report General Information Date of Study: 06/11/20 TEST EEG DIAGNOSIS tonic clonic seizures CONDITION OF RECORDING drowsy and sleep EEG NUMBER [id number] CLINICAL HISTORY patient reported she does not remember what has happened. Was sleeping [facility] the [facility] living and woke up here in the hospital. Was told she has had several seizures. Denies any history of seizures in the past EEG DESCRIPTION basic resting occipital frequency consists of small amount of poorly organized low voltage 9 to 11 hertz per 2nd alpha admixed with low-voltage 15 to 18 hertz per 2nd beta. Bilateral symmetrical sleep activity seen during sleeve with normal and symmetrical sleep spindles. Hyperventilation not done. Photic stimulation not done. Non paroxysmal. Nonfocal. Nonlateralizing. IMPRESSION No significant abnormalities noted during brief periods of wakefulness and also mostly during sleep clinical correlation recommended
== END 2020-06-11 18:37 | DRG 53 ==
LOC: ANHED 23:14 → ANH3MED 23:45
PROVIDERS: Admitting Provider Student in an Organized Health Care Education/Training Program; Emergency Provider Emergency Medicine; PCP Internal Medicine; Visit Provider Family Medicine
DX: G40.409 Other generalized epilepsy and epileptic syndromes, not intractable, without status epilepticus (principal); Z20.828 Contact with and (suspected) exposure to other viral communicable diseases; R00.0 Tachycardia, unspecified; E11.9 Type 2 diabetes mellitus without complications; I10 Essential (primary) hypertension; J44.9 Chronic obstructive pulmonary disease, unspecified; M32.9 Systemic lupus erythematosus, unspecified; G47.00 Insomnia, unspecified; E66.01 Morbid (severe) obesity due to excess calories; Z68.42 Body mass index [BMI] 45.0-49.9, adult; G89.29 Other chronic pain; F41.8 Other specified anxiety disorders; K59.00 Constipation, unspecified; K21.9 Gastro-esophageal reflux disease without esophagitis; Z79.01 Long term (current) use of anticoagulants; Z79.899 Other long term (current) drug therapy; Z86.718 Personal history of other venous thrombosis and embolism; Z88.0 Allergy status to penicillin; Z88.1 Allergy status to other antibiotic agents; Z88.2 Allergy status to sulfonamides; Z88.8 Allergy status to other drugs, medicaments and biological substances
CPT/HCPCS: 36415; 70450; 73030; 80053; 81001; 82140; 82948; 83605; 83735; 84443; 85025; 85610; 85730; 87635; 93005; 95816; 96360; 96361; 96365; 96366; 96372; 96374; 96375; 97161; 97165; 99285; A9270; C9803; G0378; G0379; J0360; J1650; J1953; J7030; J7120; U0003

== ENCOUNTER 2020-08-30 14:52 | Emergency (ER) | payer OTHER, SELFPAY ==
--- NOTE | ~2020-08-30 | XR_ITS ---
EXAMINATION: XR abdomen obstructive series EXAM DATE: 08/30/2020 15:58 INDICATION: vomiting/constipation x 3 weeks. TECHNIQUE: Frontal upright projection of the upper abdomen, frontal projection of the lower abdomen f or interpretation. There is no prior study for comparison. FINDINGS: There is expected amount of colonic stool and gas. No small bowel dilation, nonobstructiv e bowel gas pattern. There are no suspicious calcifications identified. There is no organomegaly suspected. The bones are unremarkable. There is no free intraperitoneal air. The lung bases are clear. IMPRESSION: Unremarkable abdomen x-ray exam. Reviewed, dictated and finalized at location A.
[2020-08-30 14:50] VITALS: BP 148/99; PULSE 89; RESP 15; TEMP 36.7; O2SAT 100
[2020-08-30 15:25] LABS: Basophils Percent Auto 0.5 % (0.2-1.2); Eosinophils Absolute Auto 0.1 K/mm3 (0-0.3); Eosinophils Percent Auto 0.7 % (0-4.4); Hematocrit 44.9 % (37.0-47.0); Hemoglobin 15.4 g/dL (12.0-15.0); Immature Granulocyte Absolute 0.05 K/mm3 (0.00-0.031); Immature Granulocyte Percent A 0.7 % (0-0.5); Lymphocytes Absolute Auto 2.45 K/mm3 (0.9-3.2); Lymphocytes Percent Auto 32.5 % (18.3-44.2); Mean Corpuscular HGB Conc 34.3 g/dl (32-36); Mean Corpuscular Hemoglobin 31.6 pg (26-34); Mean Corpuscular Volume 92.2 fl (80-100); Mean Platelet Volume 10.4 fl (7.4-10.4); Monocytes Absolute Auto 0.6 K/mm3 (0.1-0.6); Monocytes Percent Auto 8.1 % (2.6-8.5); Neutrophils Absolute Auto 4.3 K/mm3 (1.3-6.7); Neutrophils Percent Auto 57.5 % (45.5-73.1); Platelet Count Result 141 k/mm3 (150-375); Red Blood Count 4.87 M/mm3 (4.2-5.4); Red Cell Distribution Width 15.3 % (11.5-14.5); White Blood Count 7.5 K/mm3 (4.5-10.0)
[2020-08-30 15:31] LABS: Add Urine Microscopic? YES; Amorphous Sediment Urine Few; Appearance Urine Cloudy (Clear); Bacteria Urine Trace /hpf; Bilirubin Urine Negative (Negative); Blood Urine Negative (Negative); Color Urine Amber (Yellow); Glucose Urine UA Negative (Negative); Ketones Urine 2+ mg/dL (Negative); Leukocyte Esterase Ur Trace LEU/UL (Negative); Mucus Urine Few /lpf; Nitrate Urine Negative (Negative); Protein Urine Negative (Negative); RBC Urine 0-2 /hpf (0-2); Specific Grav Ur 1.016 (1.001-1.035); Squamous Epithelial Cell Urine Many /hpf (Few)
[2020-08-30 15:39] LABS: Alanine Aminotransferase 21 U/L (4-35); Albumin Level 3.6 g/dL (3.5-5.1); Alkaline Phosphatase 54 U/L (38-126); Anion Gap 13 mmol/L (8-16); Aspartate Amino Transferase 42 U/L (14-36); Bilirubin,Total 1.5 mg/dL (0.2-1.3); Blood Urea Nitrogen 8 mg/dL (7-17); Carbon Dioxide 28 mmol/L (22-30); Chloride 92 mmol/L (98-107); Estimated CRCL calculation 159 ml/min; Estimated Glomerular Filt Rate > 60; Glucose 99 mg/dL (65-105); Lipase 40 U/L (23-300); Potassium 3.5 mmol/L (3.4-5.0); Sodium 133 mmol/L (137-145)
[2020-08-30 16:45] VITALS: BP 138/89; PULSE 81; RESP 15; O2SAT 100
--- NOTE | 2020-08-30 17:17 | ED.NAVMDI ---
HPI - Nausea/Vomiting/Diarrhea General Chief complaint: Nausea/Vomiting/Diarrhea Stated complaint: N/V X 3 WEEKS Time Seen by Provider: 08/30/20 15:02 History of Present Illness HPI Narrative: Patient is a 65-year-old female who presents ER with reports of nausea x3 weeks. Patient reports emesis x1 today. Not currently nauseated. Reports drinking several times yesterday. Reports its bile-like. No fevers or chills or sweats. Unsure when the last time when she had a bowel movement and thinks she could be constipated. Denies previous history of bowel obstruction. She reports she is without any chest pain or chest pressure. She has no shortness of breath or heartburn. Related Data Home Medications Medication Instructions Recorded Confirmed acetaminophen [Tylenol] 650 mg PO Q6H PRN 06/07/20 06/08/20 albuterol See Rx Instructions .ROUTE 06/07/20 06/08/20 .COMPLEX PRN albuterol sulfate 0.63 mg INHALATION Q4H PRN 06/07/20 06/07/20 clonidine HCl 0.3 mg PO TID 06/07/20 06/08/20 furosemide [Lasix] 20 mg PO DAILY 06/07/20 06/07/20 lactulose 30 ml PO BID 06/07/20 06/08/20 lorazepam 1 mg PO TID PRN 06/07/20 06/07/20 montelukast [Singulair] 10 mg PO HS 06/07/20 06/08/20 pantoprazole 40 mg PO QAM 06/07/20 06/07/20 pioglitazone 30 mg PO DAILY 06/07/20 06/07/20 potassium chloride 20 meq PO BID 06/07/20 06/07/20 trazodone 100 mg PO HS PRN 06/07/20 06/07/20 warfarin 3 mg PO DAILY 06/07/20 06/07/20 fluticasone propionate 1 spray INTRANASAL BID 06/08/20 06/08/20 hydralazine 25 mg PO TID 06/08/20 06/08/20 polyethylene glycol 3350 [Miralax] 17 g PO BID PRN 06/08/20 06/08/20 Allergies Allergy/AdvReac Type Severity Reaction Status Date / Time amlodipine Allergy Rash Verified 08/30/20 15:20 atorvastatin [From Lipitor] Allergy Unknown Verified 08/30/20 15:20 diltiazem [From Cardizem] Allergy Rash Verified 08/30/20 15:20 doxycycline Allergy Rash Verified 08/30/20 15:20 fluoxetine Allergy Rash Verified 08/30/20 15:20 morphine Allergy Unknown Verified 08/30/20 15:20 nitroglycerin Allergy Unknown Verified 08/30/20 15:20 Penicillins Allergy Unknown Verified 08/30/20 15:20 promethazine Allergy Unknown Verified 08/30/20 15:20 propranolol [From Inderal [place]] Allergy Unknown Verified 08/30/20 15:20 Sulfa (Sulfonamide Allergy Unknown Verified 08/30/20 15:20 Antibiotics) tetracycline Allergy Unknown Verified 08/30/20 15:20 Tetracyclines Allergy Unknown Verified 08/30/20 15:20 Review of Systems Review of Systems: All systems reviewed & are unremarkable except as noted in HPI and below Constitutional: Constitutional: Denies chills, Denies fever(s) and Denies weakness ENT: Denies nasal congestion and Denies sore throat Cardiovascular: Cardiovascular: Denies chest pain, Denies rapid heart rate and Denies radiating jaw, neck or arm pain Respiratory: Respiratory: Denies cough and Denies dyspnea Gastrointestinal: Gastrointestinal: Denies abdominal pain, Reports constipation, Denies diarrhea, Reports nausea and Reports vomiting Genitourinary: Genitourinary: Denies nocturia and Denies dysuria [facility] Past Medical History Medical History (Updated 08/30/20 @ 17:23 by Black Wolf MD) Anxiety COPD (chronic obstructive pulmonary disease) Depression DVT (deep venous thrombosis) Essential hypertension Insomnia SLE (systemic lupus erythematosus) Type 2 diabetes mellitus Social History Social History Smoking status: Never smoker Alcohol intake: never Substance use: never Substance use type: does not use Additional living arrangements comments: [facility] Additional occupation/education comments: disabled Gender identity (if verbalized by the patient): Female Spiritual care concerns: No Exam Narrative: Exam Narrative: GENERAL: Well-appearing, morbidly obese, and in no acute distress. HEAD: Normocephalic, atraumatic. ENT: Mucous membranes moist. CHEST:
[2020-08-30] MEDS: SODIUM CHLORIDE 0.9% IV 1,000 ML 999 ML IV CONT (17:24)
--- NOTE | 2020-08-30 18:29 | PC.NURSE ---
[facility] declined return to [facility] accepted ETA 2230 Trip # [id number]
--- NOTE | 2020-08-30 18:30 | PC.NURSE ---
Called [facility] and spoke to Mirella BERTRAND - gave update/report on pt status. [facility] aware aprox EMS transport time for pt is 0 this tonight.
[2020-08-30 18:31] VITALS: BP 141/89; PULSE 89; RESP 18; O2SAT 97
--- NOTE | 2020-08-30 18:58 | PC.NURSE ---
RN offered pt food, pt is denying at this time.
--- NOTE | 2020-08-30 19:19 | PC.NURSE ---
Pt on cart sleeping. Pt responsive to name and has no requests, complaints or concerns voiced at this time. Pt in no obvious distress. call button and personal items within reach.
[2020-08-30 20:11] VITALS: BP 152/78; PULSE 101; RESP 22; TEMP 36.9; O2SAT 99
--- NOTE | 2020-08-30 20:12 | PC.NURSE ---
Pt continues to rest on cart and is aware of poc. Pt repositioned in bed for comfort. Pt noted to desaturate to 68% on room; pt states she has sleep apnea. Placed on 2 liters of 02 and pt tolerating well with saturation of 99%. Breathing is otherwise even and unlabored. Pt remains alert and oriented and is in no obvious distress.
[2020-08-30 21:51] VITALS: BP 161/78; PULSE 96; RESP 21; O2SAT 96
--- NOTE | 2020-08-30 21:52 | PC.NURSE ---
Pt on cart sleeping. Vitals stable and pt in no obvious distress at this time. Call button and personal items within reach.
[2020-08-30 22:51] VITALS: BP 150/63; PULSE 88; RESP 22; O2SAT 98
--- NOTE | 2020-08-30 23:10 | PC.NURSE ---
Pt resting on cart in its lowest position with call button and personal items within reach. [facility] called to inform that they are en route to ED for pt transport.
[2020-08-31] MEDS: ONDANSETRON HCL ODT 4 MG TABLET PO (01:35)
== END 2020-08-31 02:16 ==
PROVIDERS: Emergency Medicine; Emergency Provider Emergency Medicine; PCP Internal Medicine
DX: R11.2 Nausea with vomiting, unspecified (principal); K59.00 Constipation, unspecified; J44.9 Chronic obstructive pulmonary disease, unspecified; Z86.718 Personal history of other venous thrombosis and embolism; I10 Essential (primary) hypertension; M32.9 Systemic lupus erythematosus, unspecified; E11.9 Type 2 diabetes mellitus without complications; F41.9 Anxiety disorder, unspecified; F32.9 Major depressive disorder, single episode, unspecified
CPT/HCPCS: 36415; 51701; 74019; 80053; 81001; 83690; 85025; 87077; 87086; 87088; 87186; 96360; 99283; A9270; J7030